=== PATIENT | female | born 1945 | race Caucasian/White ===

== ENCOUNTER 2020-02-13 18:40 | Outpatient (CLI) | payer MEDICARE, OTHER | END 2020-02-13 18:41 | disposition short-term general hospital (02) | LOC: EMS 18:40 | PROVIDERS: ATTEND Surgery | DX: R06.02 Shortness of breath (principal) ==

== ENCOUNTER 2020-11-15 10:04 | Outpatient (CLI) | payer MEDICARE, OTHER | END 2020-11-15 10:05 | disposition EMS.NT | LOC: EMS 10:04 | DX: Z03.89 Encounter for observation for other suspected diseases and conditions ruled out (principal) ==

== ENCOUNTER 2022-02-07 08:00 | Outpatient (CLI) | payer MEDICARE, OTHER ==
--- NOTE | 2022-02-07 20:18 | XRAY Report ---
PROCEDURE: Chest 2 View X-Ray INDICATIONS: COUGH TECHNIQUE: 2 views of the chest were obtained. COMPARISON: None. FINDINGS: Heart is enlarged.. No effusions, consolidations or pneumothorax. Osseous and soft tissue structures are unremarkable. Right partial shoulder arthroplasty is present. IMPRESSION: No acute pulmonary process. Reviewed by: Ema Fernandez MD on 02/07/2022 8:17 PM [facility] Approved by: Ema Fernandez MD on 02/07/2022 8:17 PM [facility] Station ID: [id number]
== END 2022-02-07 23:59 | disposition home or self-care (01) ==
LOC: DI.N 08:00
PROVIDERS: ATTEND Family Medicine
DX: R05.9 Cough, unspecified (principal); M54.6 Pain in thoracic spine

== ENCOUNTER 2022-12-09 09:54 | Outpatient (CLI) | payer MEDICARE, OTHER ==
--- NOTE | 2022-12-09 15:42 | XRAY Report ---
PROCEDURE: Shoulder 3 View LT INDICATIONS: LT SHOULDER PX TECHNIQUE: 3 views of the shoulder were acquired. COMPARISON: None. FINDINGS: Bones: No fractures or dislocations. No suspicious bony lesions. Visualized ribs appear intact. S evere glenohumeral joint space narrowing with subchondral sclerosis and inferior marginal osteophyte present. Soft tissues: No suspicious soft tissue calcifications. IMPRESSION: Severe osteoarthritis Reviewed by: Jose Helton MD on 12/09/2022 2:41 PM [facility] Approved by: Jose Helton MD on 12/09/2022 2:41 PM [facility] Station ID: [id number]
== END 2022-12-09 09:55 | disposition home or self-care (01) ==
LOC: DI 09:54
PROVIDERS: ATTEND Physician Assistant Medical
DX: M19.012 Primary osteoarthritis, left shoulder (principal)

== ENCOUNTER 2023-04-29 12:45 | Outpatient (CLI) | payer MEDICARE, OTHER | END 2023-04-29 13:00 | disposition home or self-care (01) | LOC: LAB.N 12:45 | PROVIDERS: ATTEND Physician Assistant Medical | DX: R30.0 Dysuria (principal) | CPT/HCPCS: 87086 ==

== ENCOUNTER 2023-09-01 16:15 | Outpatient (CLI) | payer MEDICARE, OTHER | END 2023-09-01 23:59 | disposition short-term general hospital (02) | LOC: EMS 16:15 | DX: M79.602 Pain in left arm (principal); W01.198A Fall on same level from slipping, tripping and stumbling with subsequent striking against other object, initial encounter; Y93.E9 Activity, other interior property and clothing maintenance; Y92.000 Kitchen of unspecified non-institutional (private) residence as the place of occurrence of the external cause; Z79.01 Long term (current) use of anticoagulants | CPT/HCPCS: A0425; A0429 ==

== ENCOUNTER 2023-10-17 10:00 | Outpatient (CLI) | payer MEDICARE, OTHER | END 2023-10-17 10:15 | disposition home or self-care (01) | LOC: LAB.N 10:00 | PROVIDERS: ATTEND Physician Assistant | DX: R30.0 Dysuria (principal) | CPT/HCPCS: 87086 ==

== ENCOUNTER 2024-08-09 18:11 | Inpatient (IN) ==
--- OUTSIDE RECORDS SUMMARY | 2024-08-09 18:22 | EXTERNAL MEDICAL SUMMARY RPT | Continuity of Care Document ---
Author Organization [place] Address [address] [address] Phone Care Team Providers Care Tobacco Scrap Sifter Name Role Phone Unavailable Unavailable Unavailable Stan Pablo Unavailable Unavailable Medications date description facility 2024-05-20 00:00 Diazepam [facility] 2024-05-20 00:00 Meclizine [facility] Problems date description facility 2024-05-12 00:00 Syncope [facility] 2024-05-12 00:00 Contusion of scalp [facility] 2024-05-12 00:00 Contusion of upper extremity [facility] 2024-05-12 00:[address] Ground-level fall [facility] al 2024-07-13 10:19 Encounter for screen ing mammogram for malignant neoplasm of [facility] 2024-07-13 10:26 Encounter for screen ing mammogram for malignant neoplasm of [facility] 2024-07-13 10:45 Age-related osteopor osis without current pathological fractu [facility] Procedures date description facility 2024-05-12 00:00 Computed tomography of head or brain without contrast [facility] 2024-05-12 00:00 Computed tomography angiography of chest with contrast for pulmonary embolus [facility] 2024-05-12 00:00 CT abdomen pelvis w [facility] 2024-05-12 00:00 Computed tomography of cervical spine without contrast [facility] Results/Labs test date facility value unit notes Result panel 1 Monocyte % 2024-05-12 12:00:08 [facility] 6.0 X10 ^3/uL (missing) Result panel 2 Automated blood monocyte count 2024-05-12 12:00:08 [facility] 400 /uL (missing) Result panel 3 [facility] Result panel 4 Automated basophil count 2024-05-12 12:00:08 [facility] 0 /uL (missing) Result panel 5 CT angiography 2024-05-12 12:00:08 [facility] 14.4 SECONDS (missing) Result panel 6 INR in Platelet poor plasma by Coagulation assay 2024-05-12 12:00:08 [facility] 1.3 (missing) (miss ing) Result panel 7 Monocyte % 2024-05-12 12:00:08 [facility] 13.8 g/d L (missing) Result panel 8 MCV (mean corpuscular volume ) determination 2024-05-12 12:00:08 [facility] 90.5 fL (mis sing) Result panel 9 Automated neutrophil % 2024-05-12 12:00:08 [facility] 7 0.6 % (missing) Result panel 10 Monocyte % 2024-05-12 12:00:08 [facility] 6.0 X10 ^3/uL (missing) Result panel 11 Monocyte % 2024-05-12 12:00:08 [facility] 13.8 g/d L (missing) Result panel 12 MCV (mean corpuscular volume ) determination 2024-05-12 12:00:08 [facility] 90.5 fL (mis sing) Result panel 13 Automated neutrophil % 2024-05-12 12:00:08 [facility] 7 0.6 % (missing) Result panel 14 Monocyte percentage, automated 2024-05-12 12:00:08 [facility] 6.7 % (missing) Result panel 15 Automated eosinophil % 2024-05-12 12:00:08 [facility] 3 .0 % (missing) Result panel 16 Automated basophil % 2024-05-12 12:00:08 [facility] 0.8 % (missing) Result panel 17 Monocyte % 2024-05-12 12:00:08 [facility] 4200 /uL (missing) Result panel 18 Monocyte percentage, automated 2024-05-12 12:00:08 [facility] 6.7 % (missing) Result panel 19 Absolute lymphocyte count 2024-05-12 12:00:08 [facility] l 1100 /uL (missing) Result panel 20 Automated blood monocyte count 2024-05-12 12:00:08 [facility] 400 /uL (missing) Result panel 21 Automated eosinophil count 2024-05-12 [facility] Result panel 22 Automated basophil count 2024-05-12 12:00:08 [facility] 0 /uL (missing) Result panel 23 CT angiography 2024-05-12 12:00:08 [facility] 14.4 SECONDS (missing) Result panel 24 INR in Platelet poor plasma by Coagulation assay 2024-05-12 12:00:08 [facility] 1.3 (missing) (miss ing) Result panel 25 Automated eosinophil % 2024-05-12 12:00:08 [facility] 3 .0 % (missing) Result panel 26 Automated basophil % 2024-05-12 12:00:08 [facility] 0.8 % (missing) Result panel 27 Monocyte % 2024-05-12 12:00:08 [facility] 4200 /uL (missing) Result panel 28 Absolute lymphocyte count 2024-05-12 [facility] ([facility] Result panel 29 Basophils Absolute Auto 2024-05-12 12:19 [facility] 0 /ul (missing) Basophils Percent Auto 2024-05-12 12:19 [facility] 0.8 % (missing) Lymphocytes Absolute Auto 2024-05-12 12:19 [facility] 1 100 /ul (missing) Hemoglobin 2024-05-12 12:[address] [place] [address] 13.8 g/dl (missing) Red Cell Distribution Width 2024-05-12 12:19 [facility] 14.9 % (missing) Lymphocytes Percent Auto 2024-05-12 12:[address] [place] [address] 18 .9 % (missing) Eosinophils Absolute Auto 2024-05-12 12:19 [facility] 2 00 /ul (missing) Platelet Count 2024-05-12 12:[address] [place] [address] 232 x1 0 3/ul (missing) Mean Corpuscular Hemoglobin 2024-05-12 12:[address] [place] [address] 29.5 pg (missing) Eosinophils Percent Auto 2024-05-12 12:19 [facility] 3. 0 % (missing) Mean Corpuscular HGB Conc 2024-05-12 12:19 [facility] 3 2.6 % (missing) Red Blood Cell Count 2024-05-12 12:19 [facility] 4.66 x10 6/ul (missing) Monocytes Absolute Auto 2024-05-12 12:19 [facility] 400 /ul (missing) Hematocrit 2024-05-12 12:[address] [place] [address] 42.2 % (missing) Neutrophils Absolute Auto 2024-05-12 12:19 [facility] 4 200 /ul (missing) White Blood Cell Count 2024-05-12 12:[address] [place] [address] 6.0 x10 3/ul (missing) Monocytes Percent Auto 2024-05-12 12:19 [facility] 6.7 % (missing) Neutrophils Percent Auto 2024-05-12 12:19 [facility] 70 .6 % (missing) Mean Corpuscular Volume 2024-05-12 12:19 [facility] 90. 5 fl (missing) Result panel 30 INR 2024-05-12 12:25 [facility] 1.3 (madi g) (missing) Prothrombin Time 2024-05-12 12:25 [facility] 14.4 seconds (missing) Result panel 31 Creatine kinase [Enzymatic activity/volume] in Serum or Plasma 2024-05-12 12:47:08 [facility] 49 U/L ([facility]) Result panel 32 Sodium [Moles/volume] in Serum or Plasma 2024-05-12 12:47:08 [facility] 139 mmol/L ([facility]) Result panel 33 Potassium [Moles/volume] in Serum or Plasma 2024-05-12 12:47:08 [facility] 4.3 mmol/L ([facility]) Result panel 34 Chloride [Moles/volume] in Serum or Plasma 2024-05-12 12:47:08 [facility] 103 mmol/L ([facility]) Result panel 35 Carbon dioxide, total [Moles/volume] in Serum or Plasma 2024-05-12 12:47:08 [facility] 31 mmol/L ([facility]) Result panel 36 Urea nitrogen [Mass/volume] in Serum or Plasma 2024-05-12 12:47:08 [facility] Result panel 37 Creatinine [Mass/volume] in Serum or Plasma 2024-05-12 12:47:08 [facility] 0.81 mg/dL ([facility]) Result panel 38 Glucose [Mass/volume] in Ser um or Plasma 2024-05-12 12:47:08 [facility] 98 mg/dL ([facility]) Result panel 39 Calcium [Mass/volume] in Serum or Plasma 2024-05-12 12:47:08 [facility] 9.1 mg/dL ([facility]) Result panel 40 Serum total bilirubin measurement (mass/volume) 2024-05-12 12:47:08 [facility] 0.5 mg/dL (missing) Result panel 41 Aspartate aminotransferase [Enzymatic activity/volume] in Serum or Plasma 2024-05-12 12:47:08 [facility] 26 IU/L ([facility]) Result panel 42 Alanine aminotransferase [Enzymatic activity/volume] in Serum or Plasma 2024-05-12 12:47:08 [facility] 20 IU/L ([facility]) Result panel 43 Alkaline phosphatase [Enzyma tic activity/volume] in Serum or Plasma 2024-05-12 12:47:08 [facility] 50 U/L ([facility]) Result panel 44 Serum total protein measurement (mass/volume) 2024-05-12 12:47:08 [facility] 6.8 g/dL (missing) Result panel 45 Albumin [Mass/volume] in Ser um or Plasma 2024-05-12 12:47:08 [facility] 4.3 g/dL (miss ing) Result panel 46 Globulin [Mass/volume] in Serum by calculation 2024-05-12 12:47:08 [facility] 2.5 g/dL (missing) Result panel 47 Albumin/Globulin [Mass Ratio] in Serum or Plasma 2024-05-12 12:47:08 [facility] 1.7 ([facility]) (missing) Result panel 48 Creatine kinase [Enzymatic activity/volume] in Serum or Plasma 2024-05-12 12:47:08 [facility] 49 U/L ([facility]) Result panel 49 Sodium [Moles/volume] in Serum or Plasma 2024-05-12 12:47:08 [facility] 139 mmol/L ([facility]) Result panel 50 Potassium [Moles/volume] in Serum or Plasma 2024-05-12 12:47:08 [facility] 4.3 mmol/L ([facility]) Result panel 51 Chloride [Moles/volume] in Serum or Plasma 2024-05-12 12:47:08 [facility] 103 mmol/L [facility]) Result panel 52 Carbon dioxide, total [Moles/volume] in Serum or Plasma 2024-05-12 12:47:08 [facility] 31 mmol/L ([facility]) Result panel 53 Urea nitrogen [Mass/volume] in Serum or Plasma 2024-05-12 12:47:08 [facility] 19 mg/dL ([facility]) Result panel 54 Creatinine [Mass/volume] in Serum or Plasma 2024-05-12 12:47:08 [facility] 0.81 mg/dL ([facility]) Result panel 55 Glucose [Mass/volume] in Ser um or Plasma 2024-05-12 12:47:08 [facility] 98 mg/dL ([facility]) Result panel 56 Calcium [Mass/volume] in Serum or Plasma 2024-05-12 12:47:08 [facility] 9.1 mg/dL ([facility]) Result panel 57 Serum total bilirubin measurement (mass/volume) 2024-05-12 12:47:08 [facility] 0.5 mg/dL (missing) Result panel 58 Aspartate aminotransferase [Enzymatic activity/volume] in Serum or Plasma 2024-05-12 12:47:08 [facility] 26 IU/L ([facility]) Result panel 59 Alanine aminotransferase [Enzymatic activity/volume] in Serum or Plasma 2024-05-12 12:47:08 [facility] 20 IU/L ([facility]) Result panel 60 Alkaline phosphatase [Enzyma tic activity/volume] in Serum or Plasma 2024-05-12 12:47:08 [facility] 50 U/L ([facility]) Result panel 61 Serum total protein measurement (mass/volume) 2024-05-12 12:47:08 [facility] 6.8 g/dL (missing) Result panel 62 Albumin [Mass/volume] in Ser um or Plasma 2024-05-12 12:47:08 [facility] 4.3 g/dL ([facility]) Result panel 63 Globulin [Mass/volume] in Serum by calculation 2024-05-12 12:47:08 [facility] 2.5 g/dL (missing) Result panel 64 Albumin/Globulin [Mass Ratio] in Serum or Plasma 2024-05-12 12:47:08 [facility] 1.7 ([facility]) (missing) Result panel 65 Estimated Glomerular Filt Rate 2024-05-12 13:25 [facility] > 60 ml/min Reported eGFR is based the CKD-EPI 202 equation that does not use a race coefficient. An eGFR below 60 mL/min/1.73m2 suggests that some kidney damage has occurred, and indicative of chronic kidney disease if persisting greater than 3 months. An eGFR less than 15 is indicative of kidney failure. Bilirubin Total 2024-05-12 13:25 [facility] 0.5 mg/dl (missing) Creatinine 2024-05-12 13:[address] [place] [address] 0.81 mg/dl (missing) Albumin Globulin Ratio 2024-05-12 13:25 [facility] 1.7 (missing) (missing) Chloride 2024-05-12 13:25 [facility] 103 mmol/l (missing) Sodium 2024-05-12 13:25 [facility] 139 mmol/l (missing) Blood Urea Nitrogen 2024-05-12 13:25 [facility] 19 mg/dl (missing) Globulin 2024-05-12 13:25 [facility] 2.5 g/dl (missing) Alanine Aminotransferase 2024-05-12 13:25 [facility] 20 iu/l (missing) BUN Creatinine Ratio 2024-05-12 13:25 [facility] 23.5 (missing) (missing) Aspartate Aminotransferase 2024-05-12 13:25 [facility] 26 iu/l (missing) Carbon Dioxide 2024-05-12 13:25 [facility] 31 mmol/l (missing) Albumin 2024-05-12 13:25 [facility] 4.3 g/dl (missing) Potassium 2024-05-12 13:25 [facility] 4.3 mmol/l (missing) Alkaline Phosphatase 2024-05-12 13:25 [facility] 50 u/l (missing) Total Protein 2024-05-12 13:25 [facility] 6.8 g/dl (missing) Calcium 2024-05-12 13:25 [facility] 9.1 mg/dl (missing) Glucose 2024-05-12 13:25 [facility] 98 mg/dl Social History date description facility 2024-05-12 00:00 Never smoked tobacco (finding) [facility] 2024-05-20 00:00 Never smoked tobacco (finding) [facility] Vital Signs date measurement value units 2024-05-12 00:00 BMI 28.3 kg/m2 2024-05-12 00:00 BP_diastolic 75 mmHg 2024-05-12 00:00 BP_systolic 154 mmHg 2024-05-12 00:00 heart_rate 118 /min 2024-05-12 00:00 height_metric 162.56 cm 2024-05-12 00:00 height_standard 64 in 2024-05-12 00:00 o2_saturation 92 % 2024-05-12 00:00 respiration_rate 20 /min 2024-05-12 00:00 temperature_metric 37.06 C 2024-05-12 00:00 temperature_standard 98.7 F 2024-05-12 00:00 weight_metric 74.84 kg 2024-05-12 00:00 weight_standard 164.99 lb 2024-05-20 00:00 BMI 34.7 kg/m2 2024-05-20 00:00 BP_diastolic 80 mmHg 2024-05-20 00:00 BP_systolic 144 mmHg 2024-05-20 00:00 heart_rate 92 /min 2024-05-20 00:00 height_metric 162.56 cm 2024-05-20 00:00 height_standard 64 in 2024-05-20 00:00 o2_saturation 97 % 2024-05-20 00:00 temperature_metric 36.78 C 2024-05-20 00:00 temperature_standard 98.2 F 2024-05-20 00:00 weight_metric 91.62 kg 2024-05-20 00:00 weight_standard 201.99 lb
[2024-08-09] MEDS: SODIUM CHLORIDE 0.9% 1,000 ML IV STA (18:46)
[2024-08-09 18:51] LABS: BASOPHILS % (AUTO) 0.2 %; EOSINOPHILS # (AUTO) 0.3 10^3/uL (0.0-0.7); HCT - HEMATOCRIT 42.3 % (37.0-47.0); HGB - HEMOGLOBIN 13.7 g/dL (12.0-16.0); LYMPHOCYTES # (AUTO) 0.2 10^3/uL (1.5-3.5); LYMPHOCYTES % (AUTO) 1.3 %; MEAN CORPUSCULAR HEMOGLOBIN 30.2 pg (27.0-31.0); MEAN CORPUSCULAR HGB CONC 32.4 g/dL (32.0-36.0); MEAN CORPUSCULAR VOLUME 93.2 fL (81.0-99.0); MEAN PLATELET VOLUME 9.9 fL (7.9-10.8); MONOCYTES # (AUTO) 0.5 10^3/uL (0.0-1.0); MONOCYTES % (AUTO) 3.6 %; NEUTROPHILS # (AUTO) 11.9 10^3/uL (1.5-6.6); NEUTROPHILS % (AUTO) 92.3 %; PLT - PLATELET COUNT 169 10^3/uL (130-450); RED BLOOD COUNT 4.54 10^6/uL (4.20-5.40); RED CELL DISTRIBUTION WIDTH 14.1 % (12.0-15.0); WHITE BLOOD COUNT 12.9 x10^3/uL (4.8-10.8)
--- NOTE | 2024-08-09 18:55 | XRAY Report ---
PROCEDURE: XR Chest 1V INDICATIONS: hypoxia TECHNIQUE: One view of the chest was acquired. COMPARISON: 02/07/2022 FINDINGS: Surgical changes and devices: Bilateral shoulder arthroplasty hardware can be seen. Lower neck postoperative clips are seen. Lungs and pleura: An incomplete inspiratory result is noted, with low lung volumes and crowding of the vascular markings. No focal infiltrates are seen. No large pneumothorax or large pleural effusion can be seen. Mediastinum: The aorta is prominent and tortuous. The cardiac contours are within normal limits. Bones and chest wall: No suspicious bony lesions. Age-appropriate degenerative changes are seen. Overlying soft tissues appear unremarkable. IMPRESSION: Low lung volumes, without an acute cardiopulmonary abnormality seen. If there is strong clinical concern for a developing or new pulmonary process, please consider a short-term follow-up 2 view chest series, performed in deep inspiration. Postoperative and degenerative changes are seen. Reviewed by: Forrest Driver MD on 08/09/2024 5:54 PM [facility] Approved by: Forrest Driver MD on 08/09/2024 5:54 PM [facility] Station ID: [id number]
[2024-08-09 19:05] LABS: INR 1.3 (0.8-1.2); PT - PROTHROMBIN TIME 14.7 secs (9.9-12.6)
[2024-08-09 19:10] LABS: ALBUMIN 3.9 g/dL (3.2-5.5); ALBUMIN/GLOBULIN RATIO 2.1 (1.0-2.2); ALKALINE PHOSPHATASE 53 IU/L (42-121); ALT ALANINE AMINOTRANSFERASE 19 IU/L (10-60); AST ASPARTATE AMINOTRANSFERASE 25 IU/L (10-42); BILIRUBIN,TOTAL 0.7 mg/dL (0.2-1.0); BUN - BLOOD UREA NITROGEN 18 mg/dL (6-20); CALCIUM 8.4 mg/dL (8.5-10.3); CARBON DIOXIDE - CO2 28 mmol/L (21-32); CHLORIDE 98 mmol/L (101-111); CREATININE 1.1 mg/dL (0.6-1.3); GFR - MDRD 48 (>89); GLUCOSE 162 mg/dL (74-104); POTASSIUM 3.9 mmol/L (3.5-4.5); SODIUM 132 mmol/L (135-145); TOTAL PROTEIN 5.8 g/dL (6.4-8.9)
[2024-08-09 19:13] LABS: LIPASE < 10 U/L (11-82)
--- NOTE | 2024-08-09 19:24 | ED Physician Documentation ---
PD HPI ALTERED MENTAL STATUS Stated complaint Stated Complaint: UTI Chief complaint Chief Complaint: General History obtained from History obtained from: Patient, Family (daughter) and EMS History of Present Illness Timing - onset: How many days ago (The patient and her daughter have noted her having some confusion and forgetfulness and general weakness for 3 to 4 days. Seen at walk-in clinic yesterday and diagnosed with UTI. The patient did not have dysuria per se. Started on Macrobid. Daughter noted right arm weakness and difficulty speech) Timing - details: Still present Quality / character: Other (confused to some degree for few days, general weakness, but right arm weak and fumbly started this morning.) Associated symptoms: No Fever or Headache Contributing factors: New medication and Recent illness (Dx UTI yesterday at Walk In. ); No Diabetic Basline status: Alert and oriented X 3 and Ambulatory Recently seen: Clinic Meds/Allgy Home Medications Ambulatory Orders Medication Instructions Recorded Confirmed diltiazem HCl 240 mg capsule,24 240 mg PO DAILY 08/09/24 hr,extended release duloxetine 30 mg capsule,delayed 30 mg PO DAILY 08/09/24 release levothyroxine 175 mcg tablet 175 mcg PO QDAY 03/19/24 08/09/24 (Synthroid) lidocaine 5 % topical patch 1 patch transdermal Q24H 1 05/20/23 08/09/24 tramadol 50 mg tablet 50 mg PO BID PRN pain 08/09/24 apixaban 5 mg tablet (Eliquis) 5 mg PO BID 08/08/24 nitrofurantoin 100 mg PO Q12H 5 days #10 ca ps 08/08/24 08/09/24 monohydrate/macrocrystals 100 mg capsule pregabalin 50 mg capsule 50 mg PO BID 08/08/24 cholecalciferol (vitamin D3) 50 2,000 unit PO DAILY 08/09/24 mcg (2,000 unit) capsule (Vitamin D3) denosumab 60 mg/mL subcutaneous 60 mg subcut [id number] 08/09/24 08/09/24 syringe (Prolia) docusate sodium 100 mg capsule 100 mg PO BID PRN const ipation 08/09/24 08/09/24 (Colace) fluticasone propionate 50 1 spray intranasal BID PRN a llergy 08/09/24 08/09/24 mcg/actuation nasal symptoms spray,suspension hydrocortisone valerate 0.2 % 1 applic topical BID PRN rash 08/09/24 08/09/24 topical cream losartan 25 mg tablet 25 mg PO DAILY 08/09/2407/30 meclizine 25 mg chewable tablet 25 mg PO TID 08/09/24 08/09/24 ondansetron 4 mg disintegrating 4 mg PO Q8H PRN nausea and vomiting 08/09/24 08/09/24 tablet triamcinolone acetonide 0.1 % 1 applic topical BID PRN rash 08/09/24 08/09/24 topical cream vit C 250 mg-E 90 mg-zinc 40 1 tab PO DAILY 08/09/24 0 08/09/24 mg-copper 1 nl-mklhjg-vjqwza chew tablet (PreserVision AREDS-2) Allergies Allergies Allergy/AdvReac Type Severity Reaction Status Date / Time No Known Drug Allergies Allergy Verified 08/08/24 10:37 PFSH Active Problems All Active Problems (Updated 08/10/24 @ 03:16 by Jimenez Gaytan MD) Seizure (Acute) Shoulder pain (Acute) TIA (transient ischemic attack) (Acute) Acute UTI (Acute) Right arm weakness (Acute) Aphasia (Acute) Acute cystitis without hematuria (Acute) Cellulitis of right foot (Acute) Social History Social History Smoking Status: Never smoker Exam Exam Vital Signs: Vital Signs x48h Temp Pulse Resp BP Pulse Ox O2 Flow Rate 08/09/24 22:00 103 H 22 159/92 H 94 4 08/09/24 21:45 103 H 17 151/73 H 95 4 08/09/24 21:30 103 H 23 149/73 H 95 4 08/09/24 21:15 119 H 18 160/79 H 91 L 08/09/24 21:02 104 H 19 134/93 H 08/09/24 19:45 93 4 08/09/24 19:43 37.2 C 113 H 24 127/68 93 4 08/09/24 19:28 113 H 22 156/69 H 92 4 Constitutional normal general appearance, no apparent distress and average body habitus She seems in good mood and is talking with me reasonably though stops midsentence at times and then seems confused and lost for where she was going. Daughter states this is unusual. HENMT normocephalic and head/scalp atraumatic Neck/C-Spine supple and no meningeal signs Lymph no lymphadenopathy noted Respiratory breath sounds equal bilaterally and normal respiratory effort Cardiovascular normal heart rate noted, regular rhythm noted and no edema Gastrointestinal abdomen soft to palpation and nontender to palpation Neurology planer feeder II-XII intact, no movement abnormality noted, focal motor deficit noted hypotonic: right upper extremity, no sensory deficits noted, speech abnormality noted (expressive aphasia) (mild) and coordination normal Psychiatry mental status grossly normal, orientation abnormal (disoriented to time), cooperative and affect normal Skin skin color normal Results Vitals Vitals: Vital Signs - 24 hr 08/09/24 18:15 08/09/24 18:28 08/09/24 18:31 Temperature 37 C Temperature Source Oral Pulse Rate 124 H Respiratory Rate 24 Blood Pressure 140/74 H O2 Saturation 83 L 94 Oxygen Delivery Method Nasal Cannula O2 Source Room air Nasal cannula If not protocol: Oxygen Flow, liters/minute 4 4 Pain Intensity 3 08/09/24 18:43 08/09/24 18:58 08/09/24 19:13 Temperature Temperature Source Pulse Rate 120 H 127 H 122 H Respiratory Rate 24 27 H 26 H Blood Pressure 126/72 132/75 H 120/69 O2 Saturation 93 96 96 Oxygen Delivery Method O2 Source Nasal cannula Nasal cannula Nasal cannula If not protocol: Oxygen Flow, liters/minute 4 4 4 Pain Intensity 08/09/24 19:28 08/09/24 19:43 08/09/24 19:45 Temperature 37.2 C Temperature Source Oral Pulse Rate 113 H 113 H Respiratory Rate 22 24 Blood Pressure 156/69 H 127/68 O2 Saturation 92 93 93 Oxygen Delivery Method O2 Source Nasal cannula Nasal cannula Nasal cannula If not protocol: Oxygen Flow, liters/minute 4 4 4 Pain Intensity 4 08/09/24 20:59 08/09/24 21:02 08/09/24 21:15 Temperature Temperature Source Pulse Rate 104 H 119 H Respiratory Rate 19 18 Blood Pressure 134/93 H 160/79 H O2 Saturation 91 L Oxygen Delivery Method O2 Source Nasal cannula If not protocol: Oxygen Flow, liters/minute Pain Intensity 4 4 08/09/24 21:29 08/09/24 21:30 08/09/24 21:45 Temperature Temperature Source Pulse Rate 103 H 103 H Respiratory Rate 23 17 Blood Pressure 149/73 H 151/73 H O2 Saturation 95 95 Oxygen Delivery Method O2 Source Nasal cannula Nasal cannula If not protocol: Oxygen Flow, liters/minute 4 4 Pain Intensity 4 08/09/24 22:00 Temperature Temperature Source Pulse Rate 103 H Respiratory Rate 22 Blood Pressure 159/92 H O2 Saturation 94 Oxygen Delivery Method O2 Source Nasal cannula If not protocol: Oxygen Flow, liters/minute 4 Pain Intensity Oxygen O2 Source Nasal cannula Labs Labs: Laboratory Tests 08/09/24 08/09/24 18:45 19:29 WBC 12.9 H RBC 4.54 Hgb 13.7 Hct 42.3 MCV 93.2 MCH 30.2 MCHC 32.4 RDW 14.1 Plt Count 169 MPV 9.9 Neut # (Auto) 11.9 H Lymph # (Auto) 0.[address] [place] # (Auto) 0.5 Eos # (Auto) 0.3 Baso # (Auto) 0.0 Absolute Nucleated RBC 0.00 Nucleated RBC % 0.0 PT 14.7 H INR 1.3 H APTT 31.0 Sodium 132 L Potassium 3.9 Chloride 98 L Carbon Dioxide 28 Anion Gap 6.0 BUN 18 Creatinine 1.1 Estimated GFR (MDRD) 48 L Glucose 162 H Lactic Acid 1.0 Calcium 8.4 L Magnesium 1.8 Total Bilirubin 0.7 AST 25 ALT 19 Alkaline Phosphatase 53 Total Protein 5.8 L Albumin 3.9 Globulin 1.9 L Albumin/Globulin Ratio 2.1 Lipase < 10 L Urine Color YELLOW Urine Clarity CLEAR Urine pH 6.0 Ur Specific [place] 1.015 Urine Protein 30 H Urine Glucose (UA) NEGATIVE Urine Ketones TRACE Urine Occult Blood SMALL H Urine Nitrite NEGATIVE Urine Bilirubin NEGATIVE Urine Urobilinogen 0.2 (NORMAL) Ur Leukocyte Esterase TRACE H Urine RBC 6-10 H Urine WBC 6-10 H Ur Squamous Epith Cells RARE Squamous Amorphous Sediment Few Urine Bacteria Rare Ur Microscopic Review INDICATED Urine Culture Comments INDICATED Rads (name of study) head CT: Relevant Findings:: Final report received and EMP independent interpretation of test Interpretation: EXAM: [id number] CT/HEADWO ([id number]) PROCEDURE: CT Head WO INDICATIONS: right arm weakness, confused/ aphasia since AM TECHNIQUE: Noncontrast 4.5 mm thick angled axial sections acquired from the foramen magnum to the vertex. For radiation dose reduction, the following was used: automated exposure control, adjustment of mA and/or kV according to patient size. COMPARISON: 05/12/2024 FINDINGS: Image quality: Excellent. CSF spaces: Basal cisterns are patent. No extra-axial fluid collections. The ventricles are symmetric in size and shape. Brain: No intracranial bleeds or masses. There is cerebral volume loss for age, with resultant ventricular and sulcal prominence. There are periventricular and deep white matter chronic small vessel ischemic changes. There is intracranial internal carotid artery atherosclerosis. Skull and face: Calvarium and visualized facial bones appear intact, without suspicious lesions. Sinuses: Visualized sinuses and mastoids are clear. IMPRESSION: No acute intracranial pathology. Reviewed by: Andrés Solares MD on 08/09/2024 8:53 PM PDT head/neck CTA: Relevant Findings:: Final report received and EMP independent interpretation of test Interpretation: HEAD CT ANGIOGRAPHY: Anterior circulation: Intracranial internal carotid arteries are normal in size and flow. The flow within the paired anterior cerebral arteries is normal and symmetric. The flow within the middle cerebral arteries is normal and symmetric. The anterior communicating artery is seen. No aneurysms are seen. Posterior circulation: Visualized portions of the vertebral arteries demonstrate normal caliber, and join to form a normal appearing basilar artery. Flow within the posterior cerebral arteries is normal and symmetric. No aneurysms are seen. NECK CT ANGIOGRAPHY: Carotid system: The great vessels demonstrate a conventional anatomy as they arise from the aortic arch. The origins of the common carotid arteries appear patent. The common carotid arteries demonstrate normal caliber and courses. The bifurcation regions are both widely patent. The internal carotid arteries demonstrate normal calibers and courses. Posterior circulation: The origins of the vertebral arteries both appear widely patent. The more superior extracranial portions of both vertebral arteries also demonstrate normal courses and calibers. They join to form a normal appearing basilar artery. Soft tissues: Visualized neck soft tissues demonstrate no suspicious abnormalities. Bones: No suspicious bony lesions. Visualized cervical spine appears normally aligned. IMPRESSION: No significant intracranial arterial abnormality is seen. No significant abnormality is seen within the arteries of the neck. The estimate of stenosis included in the report of the imaging study was calculated using the NASCET method Reviewed by: Andrés Solares MD on 08/09/2024 8:58 PM PDT PD Medical Decision Making ED course Complexity details: reviewed results, considered differential (the patient with UTI and was Rx antibiotic for that, but I don't think she would be having these symptoms from side effect or such of Macrobid. The UA in Walk In (and here) is mediocre c/w significant UTI. She does not seem septic. So I would be concerned about incidental UTI and CVA instead. ), d/w patient and d/w family (daughter) Reviewed Lab Results: CT head and CTA of the head do not show any acute abnormalities. However given her symptoms of some aphasia and right arm weakness, it would be less likely major MCA distribution and more likely small area. I feel the patient would diagnostically need MRI for better evaluation of this. The urinalysis here is suggestive of UTI and worthy of giving some Rocephin. However I do not feel it appears significant enough to suggest her altered mentation from sepsis or UTI per se. Therefore other causes are looked for. The daughter states she noted the patient's symptoms since this morning awakening around 830 and thought it attributed to either the medications or her UTI. With the symptoms continued this afternoon, there is not a time urgency so code stroke was not applied. Discharge Plan Discharge Patient Disposition: ED Place in Observation Condition: Stable Clinical Impression: Aphasia, Right arm weakness, Acute UTI, Seizure Interventions: ED Admission Assessment Last Done: 08/09/24 23:25 NIHSS Level of Consciousness Level of consciousness: (0) Alert, Keenly responsive LOC Questions: (0) Answers both Q's correct LOC Commands: (0) Performs both correctly Gaze Best Gaze: (0) Normal Visual Visual: (0) No loss Facial Palsy Facial Palsy: (0) Normal, symmetrical movement Motor Arms (both separate) Motor Arm (right): (1) Drift Motor Arm (left): (0) No drift Motor Legs (both separate) Motor Leg (right): (0) No drift Motor Leg (left): (0) No drift Limb Ataxia Limb Ataxia: (1) Present in 1 limb Sensory Sensory: (0) Normal Best Language Best Language: (1) [id number] Dysarthria Dysarthria: (0) Normal Extinction and Inattention (formally neg Extinction and inattention: (0) No abnormality Total Score/Results Total Score/Result: 3
[2024-08-09] MEDS ORDERED: iohexoL-300 100 ML VIAL ONE (19:30)
[2024-08-09 19:36] LABS: BILIRUBIN,URINE NEGATIVE (NEGATIVE); CLARITY,URINE CLEAR (CLEAR); GLUCOSE, URINE (UA) NEGATIVE (NEGATIVE); KETONES,URINE (UA) TRACE mg/dL (NEGATIVE); LEUKOCYTE ESTERASE, URINE TRACE (NEGATIVE); NITRITE,URINE NEGATIVE (NEGATIVE); OCCULT BLOOD,URINE SMALL (NEGATIVE); PROTEIN,URINE 30 mg/dL (NEGATIVE); UROBILINOGEN,URINE 0.2 (NORMAL) E.U./dL (NORMAL)
[2024-08-09 19:49] LABS: AMORPHOUS SEDIMENT,UR Few /LPF; BACTERIA,URINE Rare /HPF (None Seen); SQUAMOUS EPITHELIAL CELL,UR RARE Squamous (<= Few)
[2024-08-09] MEDS: SODIUM CHLORIDE 0.9% 500 ML IV STA (20:02)
[2024-08-09] MEDS: iohexoL-300 100 ML VIAL IVP ONE (20:27)
--- NOTE | 2024-08-09 20:54 | CT Report ---
PROCEDURE: CT Head WO INDICATIONS: right arm weakness, confused/ aphasia since AM TECHNIQUE: Noncontrast 4.5 mm thick angled axial sections acquired from the foramen magnum to the vertex. For radiation dose reduction, the following was used: automated exposure control, adjustment of mA and/or kV according to patient size. COMPARISON: 05/12/2024 FINDINGS: Image quality: Excellent. CSF spaces: Basal cisterns are patent. No extra-axial fluid collections. The ventricles are symmetric in size and shape. Brain: No intracranial bleeds or masses. There is cerebral volume loss for age, with resultant ventricular and sulcal prominence. There are periventricular and deep white matter chronic small vessel ischemic changes. There is intracranial internal carotid artery atherosclerosis. Skull and face: Calvarium and visualized facial bones appear intact, without suspicious lesions. Sinuses: Visualized sinuses and mastoids are clear. IMPRESSION: No acute intracranial pathology. Reviewed by: Andrés Reeder MD on 08/09/2024 8:53 PM PDT Approved by: Andrés Reeder MD on 08/09/2024 8:53 PM PDT Station ID: [id number]
[2024-08-09] MEDS: KETOROLAC 15 MG/ML VIAL IVP STA ×2 (20:59→22:10)
[2024-08-09] MEDS: cefTRIAXone 1 GM VIAL IVP STA (20:59)
--- NOTE | 2024-08-09 20:59 | CT Report ---
PROCEDURE: CT Angio Head/Neck INDICATIONS: right arm weakness, confused/aphasia since AM TECHNIQUE: After the administration of intravenous contrast, 1 mm thick sections acquired from the aortic arch through the [place] of Yous[place]. 3-dimensional [id number]-[id number] (MIP) and/or volume rendering reformats were acquired of the central intracranial vasculature and neck separately. For radiation dose reduction, the following was used: automated exposure control, adjustment of mA and/or kV according to patient size. CONTRAST: 100 ML OMNI 300 COMPARISON: None. FINDINGS: Image quality: Diagnostic. HEAD CT: CSF Spaces: Basal cisterns are patent. No extra-axial fluid collections. Ventricles are normal in size and shape. Brain: No significant abnormality is seen for scanning technique. Skull and face: Calvarium and visualized facial bones appear intact, without suspicious lesions. Sinuses: Visualized sinuses and mastoids are clear. HEAD CT ANGIOGRAPHY: Anterior circulation: Intracranial internal carotid arteries are normal in size and flow. The flow within the paired anterior cerebral arteries is normal and symmetric. The flow within the middle cerebral arteries is normal and symmetric. The anterior communicating artery is seen. No aneurysms are seen. Posterior circulation: Visualized portions of the vertebral arteries demonstrate normal caliber, and join to form a normal appearing basilar artery. Flow within the posterior cerebral arteries is normal and symmetric. No aneurysms are seen. NECK CT ANGIOGRAPHY: Carotid system: The great vessels demonstrate a conventional anatomy as they arise from the aortic arch. The origins of the common carotid arteries appear patent. The common carotid arteries demonstrate normal caliber and courses. The bifurcation regions are both widely patent. The internal carotid arteries demonstrate normal calibers and courses. Posterior circulation: The origins of the vertebral arteries both appear widely patent. The more superior extracranial portions of both vertebral arteries also demonstrate normal courses and calibers. They join to form a normal appearing basilar artery. Soft tissues: Visualized neck soft tissues demonstrate no suspicious abnormalities. Bones: No suspicious bony lesions. Visualized cervical spine appears normally aligned. IMPRESSION: No significant intracranial arterial abnormality is seen. No significant abnormality is seen within the arteries of the neck. The estimate of stenosis included in the report of the imaging study was calculated using the NASCET method Reviewed by: Andrés Solares MD on 08/09/2024 8:58 PM PDT Approved by: Andrés Solares MD on 08/09/2024 8:58 PM PDT Station ID: [id number]
--- NOTE | 2024-08-09 21:41 | HISTORY & PHYSICAL EXAMINATION ---
Chief Complaint Chief Complaint Chief Complaint: Altered mental status History of Present Illness Admitted From Admitted From:: Home with daughter History Obtained From History obtained from: Patient, daughter at bedside History of Present Illness HPI Comment/Other: 78-year-old female PMH significant for atrial fibrillation on Eliquis, chronic pain established with pain management clinic, hypertension, bilateral shoulder repairs, knee repair, has been having increasing pain in her shoulder. Her pain medicines have been adjusted recently. She is on Lyrica, tramadol. She had presented to an urgent care yesterday, and was found to have a questionable UTI and started on Bactrim. Today, family noticed confusion, difficulty forming words, worsening pain on the right side, so she was brought into the ER In the ER, she underwent CT head, CTA head and neck which was negative for acute process. She was outside the window for therapeutic intervention, so teleneurology was not consulted. Chest x-ray was without acute abnormality. Lab work was overall unremarkable. Her confusion and difficulty forming words had mostly resolved by the time she came to the ER, though the ER doctor did notice a delay in responses. Her neuroexam was impeded by her shoulder pain, so she did have some pronator drift on the right. Hospitalist was contacted for observation for TIA versus medication effect Meds/Allgy Home Medications Ambulatory Orders Medication Instructions Recorded Confirmed diltiazem HCl 240 mg capsule,24 240 mg PO DAILY 08/09/24 hr,extended release duloxetine 30 mg capsule,delayed 30 mg PO DAILY 08/09/24 release levothyroxine 175 mcg tablet 175 mcg PO QDAY 03/19/24 08/09/24 (Synthroid) lidocaine 5 % topical patch 1 patch transdermal Q24H 1 05/20/23 08/09/24 tramadol 50 mg tablet 50 mg PO BID PRN pain 08/09/24 apixaban 5 mg tablet (Eliquis) 5 mg PO BID 08/08/24 nitrofurantoin 100 mg PO Q12H 5 days #10 ca ps 08/08/24 08/09/24 monohydrate/macrocrystals 100 mg capsule pregabalin 50 mg capsule 50 mg PO BID 08/08/24 cholecalciferol (vitamin D3) 50 2,000 unit PO DAILY 08/09/24 mcg (2,000 unit) capsule (Vitamin D3) denosumab 60 mg/mL subcutaneous 60 mg subcut [id number] 08/09/24 08/09/24 syringe (Prolia) docusate sodium 100 mg capsule 100 mg PO BID PRN const ipation 08/09/24 08/09/24 (Colace) fluticasone propionate 50 1 spray intranasal BID PRN a llergy 08/09/24 08/09/24 mcg/actuation nasal symptoms spray,suspension hydrocortisone valerate 0.2 % 1 applic topical BID PRN rash 08/09/24 08/09/24 topical cream losartan 25 mg tablet 25 mg PO DAILY 08/09/2407/30 meclizine 25 mg chewable tablet 25 mg PO TID 08/09/24 08/09/24 ondansetron 4 mg disintegrating 4 mg PO Q8H PRN nausea and vomiting 08/09/24 08/09/24 tablet triamcinolone acetonide 0.1 % 1 applic topical BID PRN rash 08/09/24 08/09/24 topical cream vit C 250 mg-E 90 mg-zinc 40 1 tab PO DAILY 08/09/24 0 08/09/24 mg-copper 1 gr-ycubhj-xiessb chew tablet (PreserVision AREDS-2) Allergies Allergies Allergy/AdvReac Type Severity Reaction Status Date / Time No Known Drug Allergies Allergy Verified 08/08/24 10:37 PFSH Active Problems All Active Problems (Updated 08/09/24 @ 22:20 by Warren Yousif DNP) Shoulder pain (Acute) TIA (transient ischemic attack) (Acute) Acute UTI (Acute) Right arm weakness (Acute) Aphasia (Acute) Acute cystitis without hematuria (Acute) Cellulitis of right foot (Acute) Social History Social History Smoking Status: Never smoker Review of Systems Status of ROS: 10 or more systems reviewed and unremarkable except as noted in history and below Constitutional Denies: Fever or Chills Cardiovascular Denies: Irregular heart rate, chest pain or shortness of breath with exertion Respiratory Denies: Shortness of breath Gastrointestinal Denies: Abdominal pain Musculoskeletal Reports: Back pain and Joint pain Neurological Reports: Confusion Exam Exam Vital Signs: Vital Signs x48h Temp Pulse Resp BP Pulse Ox O2 Flow Rate 08/09/24 21:02 104 H 19 134/93 H 08/09/24 19:45 93 4 08/09/24 19:43 37.2 C 113 H 24 127/68 93 4 08/09/24 19:28 113 H 22 156/69 H 92 4 08/09/24 19:13 122 H 26 H 120/69 96 4 08/09/24 18:58 127 H 27 H 132/75 H 96 4 08/09/24 18:43 120 H 24 126/72 93 4 08/09/24 18:31 4 08/09/24 18:28 94 4 08/09/24 18:15 37 C 124 H 24 140/74 H 83 L Constitutional normal general appearance and no apparent distress Elderly female HENMT normocephalic and head/scalp atraumatic Eyes PERRL Neck/C-Spine visual inspection normal Lymph no lymphadenopathy noted Chest inspection of chest normal Respiratory breath sounds equal bilaterally and clear to auscultation bilaterally Cardiovascular normal heart rate noted and regular rhythm noted Gastrointestinal abdomen normal to inspection Extremities normal to inspection Chronic pain in legs Neurology blade bender furnace tender II-XII intact and GCS 15 Positive for pronator drift on the right, however on further investigation it appears this is from pain in her shoulder not from neurologic deficiency. Mill Washer/pushes equal Psychiatry oriented x3 Skin skin color normal Conclusion/Plan Problem List (1) TIA (transient ischemic attack): Plan: Unsure if TIA or medication effect MRI brain in a.m. Echo Aspirin, Plavix, Lipitor Telemetry Neurochecks She does have some pronator drift, but I believe this is from pain in her shoulder PT/OT (2) Acute cystitis without hematuria: Plan: Was started on Bactrim by clinic provider yesterday Has some redness in her face and shoulders, could be sensitivity to the new antibiotic Will hold Bactrim and treat with Rocephin (3) Shoulder pain: Plan: No abnormalities on chest x-ray Ordered x-ray right shoulder PT/OT Plan Placed in observation Full code Her daughter is her surrogate decision-maker and POA Lab Results Lab results reviewed: Yes 08/09/24 18:45 08/09/24 18:45 Diagnostic Imaging Results Diagnostic Imaging Results: positive Final report reviewed Core Measures Anticipated LOS I expect patient to be DC'd or transferred within 96 hours.: Yes DVT/VTE - Prophylaxis VTE/DVT Prophylaxis med ordered at admit?: Yes Stroke - Rehab Assessment Rehab services assessment to be ordered?: Yes
[2024-08-09] MEDS: HYDROmorphone 0.5 MG/0.5 ML SYRINGE IVP STA (22:20)
[2024-08-09] MEDS: ASPIRIN CHEW 81 MG TABLET PO STA (22:22)
[2024-08-09] MEDS: LORazepam 2 MG/ML VIAL IVP PRN (23:10)
[2024-08-09] MEDS: levETIRAcetam 500 MG/5 ML VIAL IVP SCH (23:11)
[2024-08-09] MEDS ORDERED: IBUPROFEN 400 MG TABLET PO PRN (23:31)
[2024-08-09] MEDS ORDERED: ONDANSETRON 4 MG/2 ML VIAL IVP PRN (23:31)
[2024-08-09] MEDS ORDERED: ONDANSETRON ODT 4 MG TABLET TL PRN (23:31)
[2024-08-09] MEDS ORDERED: SODIUM CHLORIDE FLUSH 0.9% 10 ML SYRINGE IVP PRN (23:31)
--- NOTE | 2024-08-10 00:28 | XRAY Report ---
PROCEDURE: XR Shoulder 2+V LT INDICATIONS: Reinjured TECHNIQUE: 3 views of the shoulder were acquired. COMPARISON: 12/19/2023, 12/09/2022 FINDINGS: Bones: There is prior left shoulder reverse arthroplasty. Shoulder alignment is anatomic. No gross hardware loosening or failure. No acute fractures or dislocations. No suspicious bony lesions. No significant effusion. The glenohumeral and acromioclavicular joints are preserved. Soft tissues: No suspicious soft tissue calcifications. The visualized lungs are within normal limits. IMPRESSION: Prior left shoulder arthroplasty with anatomic shoulder alignment. No acute fracture or dislocation. No gross hardware loosening or failure. Reviewed by: Andrés Solares MD on 08/10/2024 12:26 AM PDT Approved by: Andrés Solares MD on 08/10/2024 12:26 AM PDT Station ID: [id number]
[2024-08-10] MEDS: APIXABAN 5 MG TABLET PO SCH (02:12)
[2024-08-10] MEDS: ACETAMINOPHEN 325 MG TABLET PO PRN (02:12)
[2024-08-10 05:33] LABS: BASOPHILS % (AUTO) 0.2 %; EOSINOPHILS # (AUTO) 0.4 10^3/uL (0.0-0.7); EOSINOPHILS % (AUTO) 3.7 %; HCT - HEMATOCRIT 38.9 % (37.0-47.0); HGB - HEMOGLOBIN 12.5 g/dL (12.0-16.0); LYMPHOCYTES # (AUTO) 0.3 10^3/uL (1.5-3.5); LYMPHOCYTES % (AUTO) 3.1 %; MEAN CORPUSCULAR HEMOGLOBIN 29.8 pg (27.0-31.0); MEAN CORPUSCULAR HGB CONC 32.1 g/dL (32.0-36.0); MEAN CORPUSCULAR VOLUME 92.6 fL (81.0-99.0); MEAN PLATELET VOLUME 10.3 fL (7.9-10.8); MONOCYTES # (AUTO) 0.4 10^3/uL (0.0-1.0); MONOCYTES % (AUTO) 3.4 %; NEUTROPHILS # (AUTO) 9.3 10^3/uL (1.5-6.6); NEUTROPHILS % (AUTO) 89.2 %; PLT - PLATELET COUNT 170 10^3/uL (130-450); RED CELL DISTRIBUTION WIDTH 14.1 % (12.0-15.0); WHITE BLOOD COUNT 10.4 x10^3/uL (4.8-10.8)
[2024-08-10 05:48] LABS: CALCIUM 7.6 mg/dL (8.5-10.3)
[2024-08-10] MEDS: SODIUM CHLORIDE FLUSH 0.9% 10 ML SYRINGE IVP SCH (06:59)
[2024-08-10] MEDS: LEVOTHYROXINE 75 MCG TABLET PO SCH (08:02)
[2024-08-10] MEDS: LEVOTHYROXINE 100 MCG TABLET PO SCH (08:02)
[2024-08-10] MEDS: CLOPIDOGREL 75 MG TABLET PO SCH (09:06)
[2024-08-10] MEDS: diltiaZEM CD 240 MG CAPSULE PO SCH (09:06)
[2024-08-10] MEDS: ASPIRIN EC 81 MG TABLET PO SCH (09:06)
[2024-08-10] MEDS: cefTRIAXone 1 GM VIAL IVP SCH (09:06)
--- NOTE | 2024-08-10 09:09 | PHARMACY PROGRESS NOTE ---
Best Possible Medication History Admit Date and Time: 08/09/242202 Home Medications Medication Instructions Recorded Confirmed Type diltiazem HCl 240 mg capsule,24 240 mg PO DAILY 08/09/24 History hr,extended release duloxetine 30 mg capsule,delayed 30 mg PO DAILY 08/09/24 History release levothyroxine 175 mcg tablet 175 mcg PO QDAY 03/19/24 08/09/24 History (Synthroid) lidocaine 5 % topical patch 1 patch transdermal Q24H 1 05/20/23 08/09/24 History tramadol 50 mg tablet 50 mg PO BID PRN pain 08/09/24 History apixaban 5 mg tablet (Eliquis) 5 mg PO BID 08/08/24 History nitrofurantoin 100 mg PO Q12H 5 days #10 ca ps 08/08/24 08/09/24 Rx monohydrate/macrocrystals 100 mg capsule pregabalin 50 mg capsule 50 mg PO BID 08/08/24 History cholecalciferol (vitamin D3) 50 2,000 unit PO DAILY 08/09/24 History mcg (2,000 unit) capsule (Vitamin D3) denosumab 60 mg/mL subcutaneous 60 mg subcut [id number] 08/09/24 08/09/24 History syringe (Prolia) docusate sodium 100 mg capsule 100 mg PO BID PRN const ipation 08/09/24 08/09/24 History (Colace) fluticasone propionate 50 1 spray intranasal BID PRN a llergy 08/09/24 08/09/24 History mcg/actuation nasal symptoms spray,suspension hydrocortisone valerate 0.2 % 1 applic topical BID PRN rash 08/09/24 08/09/24 History topical cream losartan 25 mg tablet 25 mg PO DAILY 08/09/2407/30 History meclizine 25 mg chewable tablet 25 mg PO TID 08/09/24 08/09/24 History ondansetron 4 mg disintegrating 4 mg PO Q8H PRN nausea and vomiting 08/09/24 08/09/24 History tablet triamcinolone acetonide 0.1 % 1 applic topical BID PRN rash 08/09/24 08/09/24 History topical cream vit C 250 mg-E 90 mg-zinc 40 1 tab PO DAILY 08/09/24 0 08/09/24 History mg-copper 1 [id number] chew tablet (PreserVision AREDS-2) Processed by: Pharmacy Medications reviewed in ED?: No Medication History completed: Yes Patient Interview: Completed Secondary Source(s): Caregiver and Insurance records [facility] Statement: Per RN confirmation note and head custodian confirmation with review of surescripts rx records. As the person ultimately responsible for medication therapy, providers are able to order a medication from an existing home medication list in [facility] via the "Reconcile Routine" prior to Confirmation of that medication by production support engineer. Such practice is discouraged except when the physician, in their clinical judgment, deems that a medical need exists for a medication without regard to previous use.
[2024-08-10] MEDS: LORazepam 2 MG/ML VIAL IVP ONE (11:35)
[2024-08-10] MEDS: traMADol 50 MG TABLET PO PRN (11:40)
--- NOTE | 2024-08-10 12:36 | PT Plan of Care ---
PT Inpatient Plan of Care DIAGNOSIS Diagnosis: TIA, UTI Referring Provider: Warren Yousif Patient Status: Observation CHIEF COMPLAINT Chief Complaint: weakness and dizziness BALANCE/FUNCTIONAL RESULTS Sitting Balance: Good Standing Balance: Fair ASSESSMENT Assessment: The pt is a 78 y/o F who arrived to the ED on 08/09/24 due to AMS, she was hospitalized with a possible TIA. Of note she was also diagnosed with and provided antibiotics for a UTI at the walk-in clinic on 08/07/24. Please see chart for complete medical hx. The pt was received resting comfortably supine in bed and presented today with decreased B UE and LE strength, decreased activity tolerance, and impaired standing balance which limited his tolerance with functional mobility. Her overall tolerance throughout this assessment was limited by weakness, fatigue, and R sided pain. At this time recommend continued skilled PT intervention while in the acute setting and DC to SNF for further rehab once pt medically stable. At the end of the session the pt was sitting up in a chair with call light in reach, chair alarm in place and on, and all needs met while visiting with her . RN and DNP updated on pt's status and DC rec. GOALS Improve supine to sit to:: Modified Independent Improve sit to stand to:: Standby Assist Improve pivot transfer ability to:: Standby Assist Improve sit to supine to:: Modified Independent Improve gait ability to:: SBA Advance Assistive Device to:: Front Wheeled Walker Increase distance walked to (in feet):: 100 PLAN Frequency: 1-2x/day Duration: Until discharge DISCHARGE RECOMMENDATIONS Discharge Location: Long-Term Facility Support/Services Needed: With assist Other Discharge Equipment: pt owns all recommended DME Transport Needs at Discharge: Wheelchair van
--- NOTE | 2024-08-10 13:22 | PROVIDER PROGRESS NOTE ---
Subjective Prog Note Date Prog Note Date: 08/10/24 Subjective Pt reports feeling: No change Subjective: Patient asleep after dose of Ativan at time of my interview Current Medications Current Medications Current Medications: Current Medications Generic Name Dose Route Start Last Admin Trade Name Freq PRN Reason Stop Dose Admin Acetaminophen 650 mg 08/09/24 23:31 08/10/24 02:12 Acetaminophen 325 Mg Tablet PO 650 mg Q4HR PRN Administration Pain 1 to 4, or Fever Apixaban 5 mg 08/09/24 23:31 08/10/24 09:06 Apixaban 5 Mg Tablet PO 5 mg BID KIMBERLY Administration Aspirin 81 mg 08/10/24 09:00 08/10/24 09:06 Aspirin Ec 81 Mg Tablet PO 81 mg DAILY KIMBERLY Administration Atorvastatin Calcium 40 mg 08/10/24 21:00 Atorvastatin 40 Mg Tablet PO QPM KIMBERLY Ceftriaxone Sodium 1 gm 08/10/24 09:00 08/10/24 09:06 Ceftriaxone 1 Gm Vial IVP 1 gm DAILY KIMBERLY Administration Clopidogrel Bisulfate 75 mg 08/10/24 09:00 08/10/24 09:06 Clopidogrel 75 Mg Tablet PO 75 mg DAILY KIMBERLY Administration Diltiazem HCl 240 mg 08/10/24 09:00 08/10/24 09:06 Diltiazem Cd 240 Mg Capsule PO 240 mg DAILY KIMBERLY Administration Ibuprofen 400 mg 08/09/24 23:31 Ibuprofen 400 Mg Tablet PO Q4HR PRN Pain 1 to 4 Levothyroxine Sodium 100 mcg 08/10/24 07:30 08/10/24 08:02 Levothyroxine 100 Mcg Tablet PO 100 mcg QDAC KIMBERLY Administration Levothyroxine Sodium 75 mcg 08/10/24 07:30 08/10/24 08:02 Levothyroxine 75 Mcg Tablet PO 75 mcg QDAC KIMBERLY Administration Lorazepam 0.5 mg 08/09/24 22:55 08/09/24 23:10 Lorazepam 2 Mg/Ml Vial IVP 0.5 mg Q2H PRN Administration Anxiety Ondansetron HCl 4 mg 08/09/24 23:31 Ondansetron Odt 4 Mg Tablet TL Q6HR PRN Nausea / Vomiting Ondansetron HCl 4 mg 08/09/24 23:31 Ondansetron 4 Mg/2 Ml Vial IVP Q6HR PRN Nausea / Vomiting Sodium Chloride 10 ml 08/09/24 23:31 Sodium Chloride Flush 0.9% 10 Ml Syringe IVP PRN PRN NEEDED PER PROVIDER ORDERS Sodium Chloride 10 ml 08/10/24 01:00 08/10/24 09:06 Sodium Chloride Flush 0.9% 10 Ml Syringe IVP 10 ml 0100,0900,1700 KIMBERLY Administration Tramadol HCl 50 mg 08/09/24 23:31 08/10/24 11:40 Tramadol 50 Mg Tablet PO 50 mg BID PRN Administration pain Objective Vital Signs/Intake & Output Reviewed Vital Signs: Yes Vital Signs: Vital Signs x48h Temp Pulse Resp BP Pulse Ox O2 Flow Rate 08/10/24 08:39 2 08/10/24 08:16 36.5 C 97 20 126/71 94 2 Intake & Output: Intake & Output 08/07/24 08/08/24 08/09/24 08/10/24 23:59 23:59 23:59 23:59 Intake Total 1500 / 1500 390 / 390 Output Total 1000 / 1000 Balance 1500 / 1500 -610 / -610 Weight (kg) 96.6 kg 98.5 kg Objective General Appearance: positive No acute distress Eyes Bilateral: positive Normal inspection ENT: positive ENT inspection nml Neck: positive Nml inspection Respiratory: positive Chest non-tender and No respiratory distress Cardiovascular: positive Regular rate & rhythm Abdomen: positive Non-tender Skin: positive Color nml Extremities: positive Non-tender Neurologic/Psychiatric: positive Other (Extremely drowsy from dose of Ativan for MRI) Lab Results 08/10/24 05:02 08/10/24 05:02 Other Labs: Lab Results x24hrs 08/10/24 08/09/24 08/09/24 Range/Units 05:02 19:29 18:45 WBC 10.4 12.9 H (4.8-10.8) x10^3/uL RBC 4.20 4.54 (4.20-5.40) 10^6/uL Hgb 12.5 13.7 (12.0-16.0) g/dL Hct 38.9 42.3 (37.0-47.0) % MCV 92.6 93.2 (81.0-99.0) fL MCH 29.8 30.2 (27.0-31.0) pg MCHC 32.1 32.4 (32.0-36.0) g/dL RDW 14.1 14.1 (12.0-15.0) % Plt Count 170 169 (130-450) 10^3/uL MPV 10.3 9.9 (7.9-10.8) fL Neut # (Auto) 9.3 H 11.9 H (1.5-6.6) 10^3/uL Lymph # (Auto) 0.3 L 0.2 L (1.5-3.5) 10^3/uL [place] # (Auto) 0.4 0.5 (0.0-1.0) 10^3/uL Eos # (Auto) 0.4 0.3 (0.0-0.7) 10^3/uL Baso # (Auto) 0.0 0.0 (0.0-0.1) 10^3/uL Absolute Nucleated RBC 0.00 0.00 x10^3/uL Nucleated RBC % 0.0 0.0 /100WBC PT 14.7 H (9.9-12.6) secs INR 1.3 H (0.8-1.2) APTT 31.0 (24.9-33.3) secs Sodium 136 132 L (135-145) mmol/L Potassium 4.0 3.9 (3.5-4.5) mmol/L Chloride 103 98 L (101-111) mmol/L Carbon Dioxide 26 28 (21-32) mmol/L Anion Gap 7.0 6.0 (6-13) BUN 18 18 (6-20) mg/dL Creatinine 1.0 1.1 (0.6-1.3) mg/dL Estimated GFR (MDRD) 54 L 48 L (>89) Glucose 109 H 162 H (74-104) mg/dL Lactic Acid 1.0 (0.5-2.2) mmol/L Calcium 7.6 L 8.4 L (8.5-10.3) mg/dL Magnesium 1.8 (1.7-2.3) mg/dL Total Bilirubin 0.7 (0.2-1.0) mg/dL AST 25 (10-42) IU/L ALT 19 (10-60) IU/L Alkaline Phosphatase 53 (42-121) IU/L Total Protein 5.8 L (6.4-8.9) g/dL Albumin 3.9 (3.2-5.5) g/dL Globulin 1.9 L (2.1-4.2) g/dL Albumin/Globulin Ratio 2.1 (1.0-2.2) Lipase < 10 L (11-82) U/L Urine Color YELLOW Urine Clarity CLEAR (CLEAR) Urine pH 6.0 (5.0-7.5) PH Ur Specific [place] 1.015 (1.002-1.030) Urine Protein 30 H (NEGATIVE) mg/dL Urine Glucose (UA) NEGATIVE (NEGATIVE) mg/dL Urine Ketones TRACE (NEGATIVE) mg/dL Urine Occult Blood SMALL H (NEGATIVE) Urine Nitrite NEGATIVE (NEGATIVE) Urine Bilirubin NEGATIVE (NEGATIVE) Urine Urobilinogen 0.2 (NORMAL) (NORMAL) E.U./dL Ur Leukocyte Esterase TRACE H (NEGATIVE) Urine RBC 6-10 H (0-5) /HPF Urine WBC 6-10 H (0-5) /HPF Ur Squamous Epith Cells RARE Squamous (<= Few) Amorphous Sediment Few /LPF Urine Bacteria Rare (None Seen) /HPF Ur Microscopic Review INDICATED Urine Culture Comments INDICATED Assessment/Plan Problem List (1) TIA (transient ischemic attack): Impression: Her confusion and difficulty word finding was either due to TIA or medication effect Fails pronator drift test, likely because of shoulder pain not neurological abnormality MRI brain performed, pending Check echo Aspirin, Plavix, Lipitor Continue telemetry Continue neurochecks (2) Acute cystitis without hematuria: Impression: Was placed on Bactrim 1 day before presentation, this may have contributed to the redness seen in her face and shoulders yesterday Has received 2 doses of Rocephin, transitioning to Keflex 500 mg p.o. twice daily. Will need 7-day total course of cephalosporin (3) Shoulder pain: Impression: No abnormality on chest x-ray Ordered x-ray right shoulder Continue as needed tramadol Adding Flexeril as needed Have changed the Tylenol to 1 g 3 times daily scheduled PT as above
--- NOTE | 2024-08-10 13:31 | OT Plan of Care ---
OT Plan of Care OT Plan of Care: Diagnosis Diagnosis TIA, UTI Chief Complaint weakness and dizziness Assessment Assessment The pt is a 78 y/o F who arrived to the ED on 02/23 due to AMS, she was hospitalized with a possible TIA. Of note she was also diagnosed with and provided antibiotics for a UTI at the walk-in clinic on 08/07/24. Reporting multiple falls within last month, last resulting in head strike. MRI pending. Cleared for therapy evaluation. Met supine in bed, A&x4, follows all commands. Denied sequela. Reporting 6/10 pain in R shld - Assessment of R UE shld limited AAROM to about 70 deg, 180 deg PROM with therapist assist with grimace - Palpation appears in tact however rec R shld X ray 2/2 pain and AROM limitation. Pt performed supine to sit, sit to stand, and ambulation to/from bathroom MIN A using RW- R lateral lean and LOB with fatigue requiring hands on therapist assist . MOD A LB, MIN A UB ADL at this time. Overall presents with decreased endurance, activity tolerance and ADL status. Will benefit from cont OT services during acute stay. Rec d/c to SNF at this time. Goals - Activities of Daily Living Improve Upper Extremity Modified Independent Dressing to: Improve Lower Extremity Modified Independent Dressing to: Improve Grooming/Hygiene to: Modified Independent Improve Bathing to: Modified Independent Improve Toileting to: Modified Independent Plan Treatment Frequency 1x/day Duration Until discharge -Discharge Recommendations Discharge Location Custodial Facility Transport Needs at Discharge Wheelchair van
[2024-08-10] MEDS ORDERED: FLUTICASONE NASAL SPRAY NAS PRN (13:32)
[2024-08-10] MEDS ORDERED: TRIAMCINOLONE 0.1% CREAM 15 GM TUBE TOP PRN (13:39)
--- NOTE | 2024-08-10 14:00 | MRI Report ---
PROCEDURE: MRI Brain WO INDICATIONS: TIA workup TECHNIQUE: Noncontrast axial T1 spin echo, axial T2 fast spin echo, sagittal and axial FLAIR, coronal T2 fast spin echo, axial gradient echo, axial diffusion and ADC through the brain. COMPARISON: CT 08/09/2024. FINDINGS: Image quality: Significant motion artifact. CSF Spaces: Basal cisterns are patent. No extra-axial fluid collections. Ventricles are normal in size and shape. Brain: No intracranial masses or hemorrhage. Santos/white matter interface is normal. Age-related global volume loss and chronic microvascular ischemic changes are present. Brainstem appears normal. Diffusion-weighted images demonstrate no acute ischemic insult. No chronic ischemic insults. Normal i ntravascular flow voids are present. Skull and face: Calvarium has normal marrow signal. Bilateral lens replacements. Sinuses: No significant paranasal sinus or mastoid air cell disease. IMPRESSION: 1.Significant motion artifact limits evaluation. 2.No definite acute intracranial abnormalities are identified. 3.Age-related global volume loss and chronic microvascular ischemic changes are present. Reviewed by: Florencio España MD on 08/10/2024 1:59 PM PDT Approved by: Florencio España MD on 08/10/2024 1:59 PM PDT Station ID: [id number]
[2024-08-10] MEDS: ACETAMINOPHEN 500 MG TABLET PO SCH (14:04)
[2024-08-10] MEDS: LIDOCAINE PATCH 4% TOP SCH (14:04)
[2024-08-10] MEDS: ATORVASTATIN 40 MG TABLET PO SCH (21:42)
[2024-08-10] MEDS: PREGABALIN 25 MG CAPSULE PO SCH (21:42)
[2024-08-11] MEDS ORDERED: ACETAMINOPHEN 325 MG TABLET PO PRN (02:58)
--- NOTE | 2024-08-11 03:48 | XRAY Report ---
PROCEDURE: XR Shoulder 2+V RT INDICATIONS: Shoulder pain in right shoulder TECHNIQUE: 3 views of the shoulder were acquired. COMPARISON: None. FINDINGS: Bones: No evidence of hardware complication status post right glenohumeral hemiarthroplasty and ORIF of the humerus. No suspicious bony lesions. No significant effusion. Postsurgical changes are noted involving the acromioclavicular joint with underlying degenerative change noted. Soft tissues: No suspicious soft tissue calcifications. The visualized lungs are within normal limits. IMPRESSION: Degenerative and postsurgical changes without evidence of acute osseous abnormality or hardware complication. Reviewed by: Scott Sanches MD on 08/11/2024 3:47 AM PDT Approved by: Scott Sanches MD on 08/11/2024 3:47 AM PDT Station ID: [id number]
[2024-08-11] MEDS: oxyCODONE 5 MG TABLET PO PRN (05:25)
[2024-08-11 05:47] LABS: BASOPHILS % (AUTO) 0.3 %; EOSINOPHILS # (AUTO) 0.5 10^3/uL (0.0-0.7); EOSINOPHILS % (AUTO) 8.3 %; HCT - HEMATOCRIT 36.6 % (37.0-47.0); HGB - HEMOGLOBIN 12.1 g/dL (12.0-16.0); LYMPHOCYTES # (AUTO) 0.6 10^3/uL (1.5-3.5); LYMPHOCYTES % (AUTO) 9.8 %; MEAN CORPUSCULAR HGB CONC 33.1 g/dL (32.0-36.0); MEAN CORPUSCULAR VOLUME 90.8 fL (81.0-99.0); MEAN PLATELET VOLUME 10.2 fL (7.9-10.8); MONOCYTES # (AUTO) 0.4 10^3/uL (0.0-1.0); MONOCYTES % (AUTO) 6.7 %; NEUTROPHILS # (AUTO) 4.3 10^3/uL (1.5-6.6); NEUTROPHILS % (AUTO) 74.7 %; PLT - PLATELET COUNT 171 10^3/uL (130-450); RED BLOOD COUNT 4.03 10^6/uL (4.20-5.40); RED CELL DISTRIBUTION WIDTH 14.2 % (12.0-15.0); WHITE BLOOD COUNT 5.8 x10^3/uL (4.8-10.8)
[2024-08-11 06:01] LABS: CALCIUM 8.4 mg/dL (8.5-10.3); CREATININE 0.9 mg/dL (0.6-1.3); POTASSIUM 3.8 mmol/L (3.5-4.5)
[2024-08-11] MEDS ORDERED: cephALEXin 500 MG CAPSULE PO SCH (08:00)
[2024-08-11] MEDS: CHOLECALCIFEROL 25 MCG TABLET PO SCH (08:20)
[2024-08-11] MEDS: cephALEXin 500 MG CAPSULE PO SCH (08:20)
[2024-08-11] MEDS: ASCORBIC ACID 500 MG TABLET PO SCH (08:21)
[2024-08-11] MEDS: DULoxetine 30 MG CAPSULE PO SCH (08:21)
[2024-08-11 11:37] VITALS: BP 145/76; TEMP 97.9; O2SAT 95
--- NOTE | 2024-08-11 11:37 | PT Plan of Care ---
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 Per chart review, pt arrived to the ED on 08/09/24 due to AMS, hospitalized with possible TIA; MRI negative for acute process. Of note she was also diagnosed with and provided antibiotics for a UTI at the walk-in clinic on 08/07/24. Please see chart for complete medical hx. Upon PT re-eval today, pt supine in bed and presented today with continued decreased BUE/BLE strength, decreased activity tolerance, and impaired standing balance which limited his tolerance with functional mobility. Her overall tolerance throughout this assessment was limited by weakness, fatigue, and R sided pain. She is a high fall risk per gait pattern, RLE instability , mild confusion, and fall history. At this time recommend continued skilled PT intervention while in the acute setting and DC to SNF for further rehab once pt medically stable. Goals Improve bed mobility to: Modified Independent Improve supine to sit to: Modified Independent Improve sit to stand to: Standby Assist Improve pivot transfer ability Standby Assist to: Improve sit to supine to: Modified Independent Improve gait ability to: SBA Assistive Device Used: Front Wheeled Walker Improve Standing Balance to: Good PT Plan of Care Frequency 1-2x/day Duration Until goals are met Discharge Recommendations Discharge Location Residential Facility Support/Services Needed With assist Other pt owns all recommended DME Transport Needs at Discharge Wheelchair van
[2024-08-11] MEDS ORDERED: DICLOFENAC SODIUM 1% GEL 50 GM TUBE TOP PRN (11:49)
--- NOTE | 2024-08-11 13:55 | PROVIDER PROGRESS NOTE ---
Subjective Prog Note Date Prog Note Date: 08/11/24 Subjective Pt reports feeling: Improved Current Medications Current Medications Current Medications: Current Medications Generic Name Dose Route Start Last Admin Trade Name [place] PRN Reason Stop Dose Admin Acetaminophen 1,000 mg 08/10/24 14:00 08/11/24 05:26 Acetaminophen 500 Mg Tablet PO 1,000 mg TID KIMBERLY Administration Apixaban 5 mg 08/09/24 23:31 08/11/24 08:21 Apixaban 5 Mg Tablet PO 5 mg BID KIMBERLY Administration Ascorbic Acid 500 mg 08/11/24 09:00 08/11/24 08:21 Ascorbic Acid 500 Mg Tablet PO 500 mg DAILY KIMBERLY Administration Aspirin 81 mg 08/10/24 09:00 08/11/24 08:21 Aspirin Ec 81 Mg Tablet PO 81 mg DAILY KIMBERLY Administration Atorvastatin Calcium 40 mg 08/10/24 21:00 08/10/24 21:42 Atorvastatin 40 Mg Tablet PO 40 mg QPM KIMBERLY Administration Cephalexin 500 mg 08/11/24 09:00 08/11/24 08:20 Cephalexin 500 Mg Capsule PO 500 mg BID KIMBERLY Administration Cholecalciferol 50 mcg 08/11/24 09:00 08/11/24 08:20 Cholecalciferol 25 Mcg Tablet PO 50 mcg DAILY KIMBERLY Administration Cyclobenzaprine HCl 10 mg 08/11/24 14:00 Cyclobenzaprine 10 Mg Tablet PO TID [facility] Diclofenac Sodium 2 gm 08/11/24 11:49 Diclofenac Sodium 1% Gel 50 Gm Tube TOP QID PRN Mild Pain (Level 1-3) Diltiazem HCl 240 mg 08/10/24 09:00 08/11/24 08:21 Diltiazem Cd 240 Mg Capsule PO 240 mg DAILY KIMBERLY Administration Duloxetine HCl 30 mg 08/11/24 09:00 08/11/24 08:21 Duloxetine 30 Mg Capsule PO 30 mg DAILY KIMBERLY Administration Fluticasone Propionate 2 sprays 08/10/24 13:32 Fluticasone Nasal [place] KHUSHBU BID PRN allergy symptoms Ibuprofen 400 mg 08/09/24 23:31 Ibuprofen 400 Mg Tablet PO Q4HR PRN Pain 1 to 4 Levothyroxine Sodium 100 mcg 08/10/24 07:30 08/11/24 06:34 Levothyroxine 100 Mcg Tablet PO 100 mcg QDAC KIMBERLY Administration Levothyroxine Sodium 75 mcg 08/10/24 07:30 08/11/24 06:34 Levothyroxine 75 Mcg Tablet PO 75 mcg QDAC KIMBERLY Administration Lidocaine 1 patch 08/10/24 14:00 08/10/24 14:04 Lidocaine Patch 4% TOP 1 patch Q24H KIMBERLY Administration Lorazepam 0.5 mg 08/09/24 22:55 08/09/24 23:10 Lorazepam 2 Mg/Ml Vial IVP 0.5 mg Q2H PRN Administration Anxiety Ondansetron HCl 4 mg 08/09/24 23:31 Ondansetron Odt 4 Mg Tablet TL Q6HR PRN Nausea / Vomiting Ondansetron HCl 4 mg 08/09/24 23:31 Ondansetron 4 Mg/2 Ml Vial IVP Q6HR PRN Nausea / Vomiting Oxycodone HCl 5 mg 08/11/24 02:58 08/11/24 05:25 Oxycodone 5 Mg Tablet PO 5 mg Q4HR PRN Administration Moderate Pain (Level 4-6) Pregabalin 50 mg 08/10/24 21:00 08/11/24 08:20 Pregabalin 25 Mg Capsule PO 50 mg BID KIMBERLY Administration Sodium Chloride 10 ml 08/09/24 23:31 Sodium Chloride Flush 0.9% 10 Ml Syringe IVP PRN PRN NEEDED PER PROVIDER ORDERS Sodium Chloride 10 ml 08/10/24 01:00 08/11/24 08:25 Sodium Chloride Flush 0.9% 10 Ml Syringe IVP 10 ml 0100,0900,1700 KIMBERLY Administration Tramadol HCl 50 mg 08/09/24 23:31 08/11/24 08:21 Tramadol 50 Mg Tablet PO 50 mg BID PRN Administration pain Triamcinolone Acetonide 1 applic 08/10/24 13:39 Triamcinolone 0.1% Cream 15 Gm Tube TOP BID PRN rash Objective Vital Signs/Intake & Output Reviewed Vital Signs: Yes Vital Signs: Vital Signs x48h Temp Pulse Resp BP Pulse Ox 08/11/24 11:35 36.6 C 84 18 145/76 H 95 08/11/24 07:47 36.2 C L 84 18 146/78 H 93 Intake & Output: Intake & Output 08/08/24 08/09/24 08/10/24 08/11/24 23:59 23:59 23:59 23:59 Intake Total 1500 / 1500 940 / 940 1462 / 1462 Output Total 1999 300 / 300 Balance 1500 / 1500 -1060 / -1060 1162 / 1162 Weight (kg) 96.6 kg 98.5 kg Objective General Appearance: positive No acute distress Eyes Bilateral: positive Normal inspection ENT: positive ENT inspection nml Neck: positive Nml inspection Respiratory: positive Chest non-tender and No respiratory distress Cardiovascular: positive Regular rate & rhythm Abdomen: positive Non-tender Skin: positive Color nml Extremities: positive Non-tender Neurologic/Psychiatric: positive Other (Extremely drowsy from dose of Ativan for MRI) Lab Results 08/11/24 04:56 08/11/24 04:56 Other Labs: Lab Results x24hrs 08/11/24 Range/Units 04:56 WBC 5.8 (4.8-10.8) x10^3/uL RBC 4.03 L (4.20-5.40) 10^6/uL Hgb 12.1 (12.0-16.0) g/dL Hct 36.6 L (37.0-47.0) % MCV 90.8 (81.0-99.0) fL MCH 30.0 (27.0-31.0) pg MCHC 33.1 (32.0-36.0) g/dL RDW 14.2 (12.0-15.0) % Plt Count 171 (130-450) 10^3/uL MPV 10.2 (7.9-10.8) fL Neut # (Auto) 4.3 (1.5-6.6) 10^3/uL Lymph # (Auto) 0.6 L (1.5-3.5) 10^3/uL [place] # (Auto) 0.4 (0.0-1.0) 10^3/uL Eos # (Auto) 0.5 (0.0-0.7) 10^3/uL Baso # (Auto) 0.0 (0.0-0.1) 10^3/uL Absolute Nucleated RBC 0.00 x10^3/uL Nucleated RBC % 0.0 /100WBC Sodium 139 (135-145) mmol/L Potassium 3.8 (3.5-4.5) mmol/L Chloride 106 (101-111) mmol/L Carbon Dioxide 28 (21-32) mmol/L Anion Gap 5.0 L (6-13) BUN 22 H (6-20) mg/dL Creatinine 0.9 (0.6-1.3) mg/dL Estimated GFR (MDRD) 61 L (>89) Glucose 105 H (74-104) mg/dL Calcium 8.4 L (8.5-10.3) mg/dL Assessment/Plan Problem List (1) TIA (transient ischemic attack): Impression: Her confusion and difficulty word finding was either due to TIA or medication effect Fails pronator drift test, likely because of shoulder pain not neurological abnormality MRI brain performed, pending Check echo Aspirin, Plavix, Lipitor Continue telemetry Continue neurochecks 08/11/2024: MRI brain without acute abnormality. At this point she is medically clear for discharge. I believe her confusion was medication effect versus symptoms of UTI. I have discontinued her Plavix (2) Acute cystitis without hematuria: Impression: Was placed on Bactrim 1 day before presentation, this may have contributed to the redness seen in her face and shoulders yesterday Has received 2 doses of Rocephin, transitioning to Keflex 500 mg p.o. twice daily. Will need 7-day total course of cephalosporin 08/11/2024: WBC remains resolved. Continue Keflex (3) Shoulder pain: Impression: No abnormality on chest x-ray Ordered x-ray right shoulder Continue as needed tramadol Adding Flexeril as needed Have changed the Tylenol to 1 g 3 times daily scheduled PT as above 08/11/2024: X-ray without any bony abnormality. Continue scheduled Tylenol. Added scheduled Flexeril and Voltaren gel
[2024-08-11] MEDS ORDERED: CYCLOBENZAPRINE 10 MG TABLET PO SCH (14:00)
--- NOTE | 2024-08-11 14:58 | Discharge Summary ---
Discharge Summary Admit Date: 08/09/24 Discharge Date: 08/11/24 Discharging Provider: Warren Yousif NP Primary Care Provider: Stan Pablo Code Status: Attempt Resuscitation DIAGNOSES Admission Diagnoses: TIA Acute cystitis without hematuria Shoulder pain, right Discharge Diagnoses with Status of Each Condition: TIAI am unconvinced that this was a neurologic event. I believe that this is dementia that has been exacerbated by UTI versus Macrobid Acute cystitis without hematuriaimproving, discharged on Keflex Shoulder pain, rightx-ray without bony abnormality. Follow-up with PT HPI History of Present Illness: 78-year-old female H significant for atrial fibrillation on Eliquis, chronic pain established with pain management clinic, hypertension, bilateral shoulder repairs, knee repair, has been having increasing pain in her shoulder. Her pain medicines have been adjusted recently. She is on Lyrica, tramadol. She had presented to an urgent care yesterday, and was found to have a questionable UTI and started on Bactrim. Today, family noticed confusion, difficulty forming words, worsening pain on the right side, so she was brought into the ER In the ER, she underwent CT head, CTA head and neck which was negative for acute process. She was outside the window for therapeutic intervention, so teleneurology was not consulted. Chest x-ray was without acute abnormality. Lab work was overall unremarkable. Her confusion and difficulty forming words had mostly resolved by the time she came to the ER, though the ER doctor did notice a delay in responses. Her neuroexam was impeded by her shoulder pain, so she did have some pronator drift on the right. Hospitalist was contacted for observation for TIA versus medication effect HOSPITAL COURSE Hospital Course: Patient was brought into the hospital and MRI was performed which, while limited by motion artifact, did not show any acute intracranial abnormalities and rather showed age-related global volume loss and chronic microvascular ischemic changes. She was started on Rocephin for her UTI, and her mentation has improved. Daughter at bedside reports that she is at her baseline right now. I performed x-ray of her right shoulder which was without bony abnormality. I would recommend she follow-up outpatient regarding this. She was evaluated by PT/OT, who recommended SNF. Patient/family refused placement at this time and said that they had all the resources they needed at home and they would prefer to follow-up outpatient for physical therapy. Patient will discharge home and outpatient physical therapy will be arranged through her PCP ALLERGIES Allergies Allergy/AdvReac Type Severity Reaction Status Date / Time No Known Drug Allergies Allergy Verified 08/08/24 10:37 MEDICATIONS Ambulatory Orders Medication Instructions Recorded Confirmed diltiazem HCl 240 mg capsule,24 240 mg PO DAILY 08/09/24 hr,extended release duloxetine 30 mg capsule,delayed 30 mg PO DAILY 08/09/24 release levothyroxine 175 mcg tablet 175 mcg PO QDAY 03/19/24 08/09/24 (Synthroid) lidocaine 5 % topical patch 1 patch transdermal Q24H 1 05/20/23 08/09/24 tramadol 50 mg tablet 50 mg PO BID PRN pain 08/09/24 apixaban 5 mg tablet (Eliquis) 5 mg PO BID 08/08/24 cholecalciferol (vitamin D3) 50 2,000 unit PO DAILY 08/09/24 mcg (2,000 unit) capsule (Vitamin D3) denosumab 60 mg/mL subcutaneous 60 mg subcut [id number] 08/09/24 08/09/24 syringe (Prolia) docusate sodium 100 mg capsule 100 mg PO BID PRN const ipation 08/09/24 08/09/24 (Colace) fluticasone propionate 50 1 spray intranasal BID PRN a llergy 08/09/24 08/09/24 mcg/actuation nasal symptoms spray,suspension hydrocortisone valerate 0.2 % 1 applic topical BID PRN rash 08/09/24 08/09/24 topical cream losartan 25 mg tablet 25 mg PO DAILY 08/09/2407/30 meclizine 25 mg chewable tablet 25 mg PO TID 08/09/24 08/09/24 ondansetron 4 mg disintegrating 4 mg PO Q8H PRN nausea and vomiting 08/09/24 08/09/24 tablet triamcinolone acetonide 0.1 % 1 applic topical BID PRN rash 08/09/24 08/09/24 topical cream vit C 250 mg-E 90 mg-zinc 40 1 tab PO DAILY 08/09/24 0 08/09/24 mg-copper 1 [id number] chew tablet (PreserVision AREDS-2) aspirin 81 mg tablet,delayed 81 mg PO DAILY 30 days #3 0 tabs 08/11/24 release atorvastatin 40 mg tablet 40 mg PO QPM 30 days #30 tab s 08/11/24 cephalexin 500 mg capsule 500 mg PO BID 5 days #10 cap s 08/11/24 cephalexin 500 mg capsule 500 mg PO BID 5 days #10 cap s 08/11/24 cyclobenzaprine 10 mg tablet 10 mg PO TID 30 days #90 tabs 08/11/24 cyclobenzaprine 10 mg tablet 10 mg PO TID PRN muscle s pasm #30 08/11/24 tabs diclofenac sodium 1 % topical gel 2 g topical QID PRN Mild Pain 08/11/24 (Arthritis Pain (diclofenac)) (Level 1-3) #50 grams PHYSICAL EXAM AT DISCHARGE Vital Signs: Vital Signs x48h Temp Pulse Resp BP Pulse Ox 08/11/24 11:35 36.6 C 84 18 145/76 H 95 General Appearance: positive No acute distress and Alert Eyes Bilateral: positive Normal inspection ENT: positive ENT inspection nml Neck: positive Nml inspection Respiratory: positive Chest non-tender Cardiovascular: positive Regular rate & rhythm Peripheral Pulses: positive 2+ Abdomen: positive Non-tender Skin: positive Color nml Extremities: positive Non-tender Neurologic/Psychiatric: positive Oriented x3 LABS 08/11/24 04:56 08/11/24 04:56 FOLLOW UP Follow Up: With PCP TIME SPENT Time Spent in Discharge (Minutes): 45 Discharge Plan Discharge Patient Disposition: Home, Self Care Condition: Stable Medically Cleared Date:: 08/11/24 Prescriptions: New aspirin 81 mg Tablet,Delayed Release (Dr/Ec) 81 mg PO DAILY 30 Days Qty: 30 0RF atorvastatin 40 mg Tablet 40 mg PO QPM 30 Days Qty: 30 0RF cephalexin 500 mg Capsule 500 mg PO BID 5 Days Qty: 10 0RF cyclobenzaprine 10 mg Tablet 10 mg PO TID 30 Days Qty: 90 0RF diclofenac sodium [Arthritis Pain (diclofenac)] 1 % Gel 2 g topical QID PRN (Reason: Mild Pain (Level 1-3)) Qty: 50 0RF cephalexin 500 mg capsule 500 mg PO BID 5 Days Qty: 10 0RF cyclobenzaprine 10 mg tablet 10 mg PO TID PRN (Reason: muscle spasm) Qty: 30 0RF Continued cholecalciferol (vitamin D3) [Vitamin D3] 50 mcg (2,000 unit) capsule 2,000 unit PO DAILY Prolia 60 mg/mL syringe 60 mg subcut [id number] docusate sodium [Colace] 100 mg capsule 100 mg PO BID PRN (Reason: constipation) fluticasone propionate 50 mcg/actuation spray,suspension 1 spray INTRANASAL BID PRN (Reason: allergy symptoms) hydrocortisone valerate 0.2 % cream 1 applic topical BID PRN (Reason: rash) losartan 25 mg tablet 25 mg PO DAILY meclizine 25 mg tablet,chewable 25 mg PO TID ondansetron 4 mg tablet,disintegrating 4 mg PO Q8H PRN (Reason: nausea and vomiting) triamcinolone acetonide 0.1 % cream 1 applic topical BID PRN (Reason: rash) PreserVision AREDS-2 250-90-40-1 mg tablet,chewable 1 tab PO DAILY diltiazem HCl 240 mg capsule,extended release 24 hr 240 mg PO DAILY tramadol 50 mg tablet 50 mg PO BID PRN (Reason: pain) levothyroxine [Synthroid] 175 mcg tablet 175 mcg PO QDAY duloxetine 30 mg capsule,delayed release(DR/EC) 30 mg PO DAILY lidocaine 5 % adhesive patch,medicated 1 patch transdermal Q24H Eliquis 5 mg tablet 5 mg PO BID Discontinued pregabalin 50 mg capsule 50 mg PO BID nitrofurantoin monohyd/m-cryst 100 mg capsule 100 mg PO Q12H 5 Days Qty: 10 0RF Activity Restrictions: Activity as Tolerated Diet: Regular Health Concerns: You came into the hospital with some confusion and difficulty word finding. You were worked up for stroke because you also had some pain in your right shoulder which prevented proper neuroassessment. Your MRI was negative for any acute abnormality. You were evaluated by physical therapy, who recommended facility placement, but you are opting to go home with outpatient physical therapy. Outpatient physical therapy has to be ordered through your primary care provider, but I will have our team see if they can help facilitate this. I believe your confusion was due to either your UTI or the medications that you were placed on to treat your UTI. Regardless, I started you on Rocephin and then transitioned you to Keflex and you have had good improvement on that. I would like for you to take that as directed until the bottle is empty. I am also sending you home with a prescription for aspirin and Lipitor. This is out of an abundance of caution, it helps reduce the risk of stroke. You endorsed some shoulder pain to me. X-rays were performed which showed no bony abnormality. I am giving you a prescription for Flexeril and diclofenac gel to help with the pain. Physical therapy will also help you with this. Please report any worsening symptoms to healthcare provider. Print Language: [place] Patient Instructions: UTI Stand Alone Forms: PCP List
--- NOTE | 2024-08-12 11:32 | ECHO Report ---
Version: 1 Study ID: [id number] [id number] Adult Echocardiogram Report Name: JANEL BOJORQUEZ Study Date: 08/11/2024, 3: 02 PM BP: 145 / 76 mmHg Patient [place] [facility] [id number] HR: 72 bpm : 1945 (MM/DD/YYYY) Gender: Female Height: 66 in Age: 78 Years Weight: 217.155 lb Reason For Study: tia workup History: Confusion, UTI Procedure: A complete two-dimensional transthoracic echocardiogram was performed (2D, M- mode, Doppler and color flow Doppler). Indication: Evaluate cardiac and valve function. The patient was comfortable and cooperative throughout the procedure. The study was done with the patient in the supine position, due to inability to lie on the left side. The underlying rhythm was sinus. Interpretation Summary There is mild concentric increase in the wall thickness of the left ventricle. Global left ventricular systolic function is normal. The visual left ventricular ejection fraction is estimated at 55 to 60%. The right ventricular systolic function is normal. No concerning cardiac valve disease is noted. Left Ventricle: The left ventricle is normal in size. There is mild concentric increase in the wall thickness of the left ventricle. Global left ventricular systolic function is normal. The visual left ventricular ejection fraction is estimated at 55 to 60%. No regional wall motion abnormalities are present. The overall diastolic pattern is most consistent with impaired left ventricular relaxation with elevated filling pressures. Right Ventricle: The right ventricle is normal size. The basal right ventricular diameter measured from a right ventricular focused view is 3.9 cm. The right ventricular systolic function is normal. The tricuspid annular plane systolic excursion (TAPSE) measurement is 2.7 cm. TAPSE is consistent with normal right ventricular function. Aortic Valve: The aortic valve is trileaflet. The aortic valve is moderately thickened. Aortic valve sclerosis is present without stenosis. No aortic regurgitation is present. Mitral Valve: The mitral valve leaflets are mildly thickened. Motion of both mitral valve leaflets are decreased. Moderate mitral annular calcification is present. The mitral annular calcification is posterior. No evidence of mitral stenosis is seen. There is trace mitral regurgitation. Tricuspid Valve: The tricuspid valve is normal in structure and function. Trace tricuspid regurgitation present. Pulmonic Valve: The pulmonic valve is normal in structure and function. Trace pulmonic valvular regurgitation is present. Left Atrium: The left atrium is moderately dilated. The left atrial volume indexed to body surface area is 47 ml/m2. This refers to the maximal volume measured prior to mitral valve opening. Right Atrium: Right atrial size is normal. The inferior vena cava is normal in diameter (<2.1cm) and there is complete collapse with inspiration (estimated right atrial pressure 0-5mmHg). Atrial Septum: The interatrial septum appears normal, without evidence of shunt by 2D imaging and color Doppler. Aorta: The diameter of the ascending aorta is 3.3 cm. The aorta at the sinus of Valsalva measures 3.8cm. Pulmonary Artery: Pulmonary artery systolic pressure could not be estimated due to an insufficient tricuspid regurgitant jet. Pericardium/Pleural Space: There is no pericardial effusion. CPT Codes: [id number]: Transthoracic Echo with Spectral and Color Doppler. Doppler Measurements & Calculations Ao max P.6 mmHg Ao V2 max: 155.0 cm/sec LV V1 max: 122.6 cm/sec LV V1 max P.0 mmHg LV V1 mean: 89.8 cm/sec LV V1 mean P.6 mmHg LV V1 VTI: 25.6 cm MV A max hellen: 121.2 cm/sec MV dec time: 0.38 sec MV DVI-pr: 0.71 MV E max hellen: 86.5 cm/sec MV max P.4 mmHg MV mean P.5 mmHg MV V2 max: 126.5 cm/sec MV V2 mean: 75.3 cm/sec MV V2 VTI: 29.1 cm PA max P.7 mmHg PA V2 max: 119.6 cm/sec RAP systole: 5.0 mmHg MMode/2D Measurements & Calculations Ao root diam: 3.8 cm EDV(MOD-sp4): 81.4 ml EF (est.): 58.8 % ESV(MOD-sp4): 33.7 ml ESV(sp4-el): 107.2 ml Heart Rate: 72.0 BPM Height (metric): 167.6 cm IVSd: 1.14 cm LA A4C-A/L: 29.6 cm² LA dimension: 6.3 cm LA ESV-A/L: 108.1 ml LAV(MOD-sp2): 73.8 ml LAV(MOD-sp4): 76.9 ml LVIDd: 5.0 cm LVIDs: 3.5 cm LVLd ap4: 8.4 cm LVLs ap4: 7.3 cm LVPWd: 1.13 cm Systolic Pressure: 145.0 mmHg TAPSE: 2.7 cm Other Measurements & Calculations Ao root diam: 3.8 cm Ao V2 max: 155.0 cm/sec BMI: 35.0 kilograms/m² BSA: 2.07 m² BSA([facility]): 2.18 m² Diastolic Pressure: 76.0 mmHg EDV(MOD-sp4): 81.4 ml EDV(Teich): 115.8 ml EF (est.): 58.8 % EF(MOD-sp4): 58.6 % EF(Teich): 57.0 % ESV(MOD-sp4): 33.7 ml ESV(sp4-el): 107.2 ml ESV(Teich): 49.8 ml FS: 30.0 % Heart Rate: 72.0 BPM Height (metric): 167.6 cm IVSd: 1.14 cm LA A4C-A/L: 29.6 cm² LA dimension: 6.3 cm LA ESV-A/L: 108.1 ml LAV(MOD-sp2): 73.8 ml LAV(MOD-sp4): 76.9 ml LV V1 max: 122.6 cm/sec LV V1 mean: 89.8 cm/sec LV V1 mean P.6 mmHg LVIDd: 5.0 cm LVIDs: 3.5 cm LVLd ap4: 8.4 cm LVLs ap4: 7.3 cm LVPWd: 1.13 cm MV A max hellen: 121.2 cm/sec MV dec time: 0.38 sec MV DVI-pr: 0.71 MV E max hellen: 86.5 cm/sec MV E/A: 0.71 MV max P.4 mmHg MV mean P.5 mmHg MV V2 max: 126.5 cm/sec MV V2 mean: 75.3 cm/sec MV V2 VTI: 29.1 cm PA max P.7 mmHg PA V2 max: 119.6 cm/sec RAP systole: 5.0 mmHg SV(MOD-sp4): 47.7 ml Systolic Pressure: 145.0 mmHg TAPSE: 2.7 cm Weight (metric): 98.5 kg Lat E/e': 9.9 Med E/e': 13.8 EDV(MOD-sp2): 82.5 ml EF Mod BP: 59.1 % ESV(MOD-sp2): 33.8 ml EF(MOD-sp2): 59.0 % EF(sp-el): 57.0 % MD Maria C Zuluaga 08/12/2024, 11: 31 AM Ordering Physician: Warren Yousif Referring Physician: Jimenez Gaytan Performed By: Shellie Carolina RDCS
== END 2024-08-11 16:15 | disposition home or self-care (01) | DRG 884 ==
LOC: MS2 18:11 → ED 18:11 → MS2 23:25
PROVIDERS: ADMIT Nurse Practitioner Acute Care; ATTEND Nurse Practitioner Acute Care
DX: R41.82 Altered mental status, unspecified; R41.0 Disorientation, unspecified; G89.29 Other chronic pain; I10 Essential (primary) hypertension; N30.00 Acute cystitis without hematuria; Z79.01 Long term (current) use of anticoagulants; R29.898 Other symptoms and signs involving the musculoskeletal system; R47.01 Aphasia; F03.90 Unspecified dementia, unspecified severity, without behavioral disturbance, psychotic disturbance, mood disturbance, and anxiety; M25.511 Pain in right shoulder; I48.91 Unspecified atrial fibrillation; R56.9 Unspecified convulsions